=== PATIENT | female | born 1990 | race Caucasian/White ===

== ENCOUNTER 2019-02-07 06:00 | Day surgery (SDC) | payer OTHER ==
[~2019-02-07] VITALS: Ht 161.3 cm; Wt 54.9 kg
[2019-02-07] MEDS ORDERED: DESMOPRESSIN NASAL SPRAY 0.1MG/ML, 5ML NAS SCH (07:00)
[2019-02-07 07:04] VITALS: BP 104/64
[2019-02-07] MEDS ORDERED: BUPIVACAINE/PF 0.25% ONE (07:04)
[2019-02-07] MEDS ORDERED: EPINEPHRINE 1 MG/ML, 1ML ONE (07:04)
[2019-02-07] MEDS ORDERED: LACTATED RINGERS 1,000 ML IV SCH (07:32)
[2019-02-07] MEDS ORDERED: NORG1TAB8 PO (07:35)
[2019-02-07] MEDS ORDERED: NADO40TA PO (07:35)
[2019-02-07] MEDS ORDERED: PROPOFOL 10 MG/ML, 20ML ONE ×2 (07:54→07:58)
[2019-02-07] MEDS ORDERED: CEFAZOLIN 1,000 MG ONE ×2 (07:54)
[2019-02-07] MEDS ORDERED: ONDANSETRON 2MG/ML, 2ML ONE (07:54)
[2019-02-07] MEDS ORDERED: LIDOCAINE-MPF 2% ,5ML ONE (07:54)
[2019-02-07] MEDS ORDERED: SODIUM CHLORIDE 0.9% IV ONE (08:00)
[2019-02-07] MEDS ORDERED: DESMOPRESSIN IV ONE (08:00)
[2019-02-07 08:03] LABS: BASOPHILS # (AUTO) 0.04 x10^3/uL (0-0.1); BASOPHILS % (AUTO) 1 % (0-1); EOSINOPHILS # (AUTO) 0.13 x10^3/uL (0-0.4); EOSINOPHILS % (AUTO) 2 % (1-7); LYMPHOCYTES # (AUTO) 1.39 x10^3/uL (1-3.4); LYMPHOCYTES % (AUTO) 23 % (22-44); MD NO; MEAN CORPUSCULAR HEMOGLOBIN 29.7 pg (27.0-34.8); MEAN CORPUSCULAR HGB CONC 32.9 g/dL (32.4-35.8); MEAN CORPUSCULAR VOLUME 90.4 fL (80-100); MEAN PLATELET VOLUME 8.9 fL (7.4-10.4); MONOCYTES # (AUTO) 0.73 x10^3/uL (0.2-0.8); MONOCYTES % (AUTO) 12 % (2-9); NEUTROPHILS # (AUTO) 3.89 x10^3/uL (1.8-6.8); NEUTROPHILS % (AUTO) 63 % (42-75); PLATELET COUNT 192 x10^3/uL (130-400); RED BLOOD COUNT 4.82 x10^6/uL (3.82-5.3); RED CELL DISTRIBUTION WIDTH 13.6 % (9.6-15.2)
[2019-02-07 08:10] LABS: HCG UR SG 1.025 (1.003-1.030); MICROSCOPIC NOT IND
[2019-02-07 08:19] LABS: CULTURE INDICATED? NO
[2019-02-07] MEDS ORDERED: LORazepam 2 MG/ML, 1ML IVPush PRN (08:30)
[2019-02-07] MEDS ORDERED: OXYcodone 5 MG/5 ML ORAL.SOL UDC PO PRN (08:30)
[2019-02-07] MEDS ORDERED: ACETAMINOPHEN 325 MG TABLET PO PRN (08:30)
[2019-02-07] MEDS ORDERED: FENTANYL PF 100 MCG/2ML IV PRN (08:30)
[2019-02-07] MEDS ORDERED: ONDANSETRON 2MG/ML, 2ML IV PRN (08:30)
== END 2019-02-07 09:45 | disposition home or self-care (01) ==
LOC: OUT 06:00
PROVIDERS: ATTEND Obstetrics & Gynecology
DX: N94.10 Unspecified dyspareunia (principal); N89.6 Tight hymenal ring; Q87.19 Other congenital malformation syndromes predominantly associated with short stature; Q25.6 Stenosis of pulmonary artery; D68.0 Von Willebrand disease; Q03.9 Congenital hydrocephalus, unspecified; M41.9 Scoliosis, unspecified; Z79.3 Long term (current) use of hormonal contraceptives; Z98.890 Other specified postprocedural states
CPT/HCPCS: 36415; 56700; 81003; 81025; 85025; 87086; J0171; J0690; J2405; J2597; J2704; J3490; J7120